=== PATIENT | male | born 1980 | race Hispanic/Latino ===

== ENCOUNTER 2019-06-29 10:30 | Day surgery (SDC) | payer OTHER ==
[2019-06-29] MEDS ORDERED: BUPIVACAINE-EPINEPHRINE/PF 0.5%-1:200,000 (30 ML) VIAL INFILTRATI ONE ×3 (12:03→13:38)
--- NOTE | 2019-06-29 12:03 | Anesthesia Consultation ---
Anesthesia Consult and Med Hx Date of service: 06/29/19 - Airway Anesthetic Teeth Evaluation: Good ROM Head & Neck: Adequate Mental/Hyoid Distance: Adequate Mallampati Class: Class II Intubation Access Assessment: Good - Pulmonary Exam CTA: Yes - Cardiac Exam Cardiac Exam: RRR - Pre-Operative Health Status ASA Pre-Surgery Classification: ASA1 Proposed Anesthetic Plan: General - Central Nervous System Hx Psychiatric Problems: No - Other Systems Hx Alcohol Use: Yes Hx Substance Use: No Hx Cancer: No
--- NOTE | 2019-06-29 12:04 | Anesthesia Day of Surgery ---
Anesthesia Day of Surgery - Day of Surgery Patient Examined: Yes Patient H&P Reviewed: Yes Patient is NPO: Yes
[2019-06-29] MEDS ORDERED: ONDANSETRON 4 MG/2 ML INJ IV PRN (12:05)
[2019-06-29] MEDS ORDERED: HYDROmorphone 1 MG/1 ML INJ IV PRN (12:05)
[2019-06-29] MEDS ORDERED: LIDOCAINE MPF (2%) 20 MG/1 ML VIAL 5 ML ONE (12:21)
[2019-06-29] MEDS ORDERED: ONDANSETRON 4 MG/2 ML INJ ONE (12:21)
[2019-06-29] MEDS ORDERED: PROPOFOL 200 MG/20 ML VIAL IV ONE (12:21)
[2019-06-29] MEDS ORDERED: dexAMETHasone 20 MG/5 ML VIAL ONE (12:21)
[2019-06-29] MEDS ORDERED: fentaNYL 100 MCG/2 ML INJ ONE (12:22)
[2019-06-29] MEDS ORDERED: LACTATED RINGERS 1,000 ML IV SCH (13:00)
[2019-06-29] MEDS ORDERED: VANCOMYCIN 2,000 MG in SODIUM CHLORIDE 0.9% 500 ML 500 ML IV NR (13:00)
[2019-06-29] MEDS ORDERED: VANCOMYCIN/NS 1 GM/250 ML 1 GM/250 ML BAG IV NR (13:00)
[2019-06-29] MEDS ORDERED: MIDAZOLAM 2 MG/2 ML INJ IV NR (13:00)
[2019-06-29] MEDS ORDERED: HEPARIN 5,000 UNIT/1 ML VIAL SUB-Q NR (13:00)
[2019-06-29] MEDS ORDERED: KETOROLAC 30 MG/1 ML INJ ONE (13:22)
[2019-06-29] MEDS ORDERED: SODIUM CHLORIDE 0.9% IRR 1,000 ML BOTTLE IR ONE (13:38)
[2019-06-29] MEDS ORDERED: HYDROmorphone 1 MG/1 ML INJ ONE (13:44)
--- NOTE | 2019-06-29 14:33 | Post Operative Note ---
Pre-op diagnosis: RIH Post-op diagnosis: same (Direct) Procedure: Open repair of RIH Anesthesia: GETA Surgeon: ALPHONSE MELO Estimated blood loss: minimal Pathology: none Specimen disposition: discarded Condition: stable Disposition: PACU
[2019-06-29] MEDS ORDERED: oxyCODONE /ACETAMINOPHEN 5-325MG TAB PO PRN (15:09)
[2019-06-29 18:04] VITALS: BP 136/74
--- NOTE | 2019-06-29 19:13 | Post Anesthesia Evaluation ---
- Post Anesthesia Evaluation Patient Participated: Yes Airway Patent: Yes Stable Respiratory Function: Yes Nausea/Vomiting: No Temp > 96.8F: Yes Pain Manageable: Yes Adequeate Hydration: Yes Anesthesia Complications: No Block Receding Appropriately: Not Applicable Patient on Ventilator: No
--- NOTE | 2019-06-30 10:19 | Procedure Note ---
Date of procedure: 06/29/19 Pre-op diagnosis: RIH Post-op diagnosis: same (Direct) Procedure: Open repair of RIH Description of procedure: Pt was placed supine on the OR table. General anesthesia was administered. RLQ and groin were prepped and draped. Skin and SQ tissue at the proposed incision were infiltrated with 7 ml of 0.5% Marcaine with epinephrine. A curvilinear incision was made in the right suprapubic crease. Hemostasis was obtained with the Bovie. SQ tissue was transected with the Bovie. The external oblique aponeurosis was incised over the inguinal canal. The cord was circumferentially dissected at the level of the pubic tubercle and a [place] drain passed about the cord. A direct hernia was obviously present. The cord contents were skeletonized and there was no evidence of an indirect inguinal hernia. The direct hernia sac was excised. The conjoined tendon was developed. The conjoined tendon was approximated to the shelving portion of Poupart's ligament with interrupted sutures of 0- Ethibond. The external oblique aponeurosis was reapproximated with a running suture of 3-0 Vicryl. Wound was irrigated. Skin was approximated with a running subcuticular suture of 4-0 Monocryl. Skin glue was applied. Pt tolerated the procedure well. Pt was taken to PACU in stable condition. Anesthesia: LENIA Surgeon: ALPHONSE MELO Estimated blood loss: minimal Pathology: none Specimen disposition: discarded Condition: stable Disposition: PACU
== END 2019-06-29 10:31 | disposition home or self-care (01) ==
LOC: OR 10:30
PROVIDERS: ATTEND Surgery
DX: K40.90 Unilateral inguinal hernia, without obstruction or gangrene, not specified as recurrent (principal); Z79.899 Other long term (current) drug therapy; Z88.0 Allergy status to penicillin; Z72.89 Other problems related to lifestyle; Z98.890 Other specified postprocedural states
CPT/HCPCS: 49505; J1100; J1170; J1644; J1885; J2250; J2405; J2704; J3010; J3370; J7040; J7120